=== PATIENT | male | born 1955 | race Caucasian/White ===

== ENCOUNTER 2024-07-27 10:13 | Emergency (ER) | payer OTHER, MEDICAID ==
[~2024-07-27] VITALS: Ht 167.6 cm; Wt 58.9 kg
[2024-07-27 10:38] VITALS: O2SAT 98
[2024-07-27] MEDS: HYDROCODONE/ACETAMINOPHEN 5/325MG TABLET PO ONE (13:24)
[2024-07-27] MEDS ORDERED: HYDR-4001 MT ×4 (15:58→17:49)
[2024-07-27] MEDS: MORPHINE SULFATE 4 MG/ML INJ (FOR IV/IM USE) IM ONE (16:37)
[2024-07-27 18:07] VITALS: BP 113/83; PULSE 70; RESP 18; O2SAT 98
== END 2024-07-27 18:07 | disposition home or self-care (01) ==
LOC: ER 10:13
DX: M79.604 Pain in right leg (principal); F17.210 Nicotine dependence, cigarettes, uncomplicated; E78.5 Hyperlipidemia, unspecified; I25.2 Old myocardial infarction; Z79.02 Long term (current) use of antithrombotics/antiplatelets; Z95.0 Presence of cardiac pacemaker; Z79.899 Other long term (current) drug therapy
CPT/HCPCS: 99285; 93971; 96372; J2270

== ENCOUNTER 2025-03-08 10:27 | Emergency (ER) | payer MEDICARE, MEDICAID ==
[~2025-03-08] VITALS: Ht 165.1 cm; Wt 56.0 kg
[~2025-03-08 10:27] MED LIST: HYDR-4001 MT
[2025-03-08 10:29] VITALS: O2SAT 95
[2025-03-08] MEDS: HYDROCODONE/ACETAMINOPHEN 5/325MG TABLET PO ONE (12:12)
[2025-03-08] MEDS: KETOROLAC 15MG/ML VIAL IM ONE (12:12)
[2025-03-08] MEDS ORDERED: HYDR-4001 MT (12:46)
[2025-03-08] MEDS ORDERED: NAPR-681 MT (12:46)
[2025-03-08 12:58] VITALS: BP 126/86; PULSE 75; RESP 18; TEMP 36.6; O2SAT 97
== END 2025-03-08 12:59 | disposition home or self-care (01) ==
LOC: ER 10:41
DX: M54.40 Lumbago with sciatica, unspecified side (principal); M47.817 Spondylosis without myelopathy or radiculopathy, lumbosacral region; Z79.899 Other long term (current) drug therapy
CPT/HCPCS: 99283; 72100; 96372; J1885